=== PATIENT | female | born 1995 ===

== ENCOUNTER 2020-07-21 10:30 | Emergency (ER) | payer OTHER ==
[2020-07-21 11:01] VITALS: BP 124/86; PULSE 86
[2020-07-21] MEDS: Bacitracin Oint 1 GM U/D Packet TOP ONE (11:09)
[2020-07-21] MEDS: Lidocaine 1% 30 ML SDV INJECT ONE (11:09)
[2020-07-21] MEDS: Diphtheria,Pertussis(Acell),Tetanus Vaccine 0.5 ML Syringe IM ONE (11:10)
--- NOTE | 2020-07-21 11:36 | EDM.PDOC ---
Scribed by Carmita Chi 07/21/20 1104 for Ash López MD ED HPI GENERAL MEDICAL PROBLEM - General Chief Complaint: Laceration Stated Complaint: HAND LECERATION Time Seen by Provider: 07/21/20 10:56 Source of Information: Reports: Patient, RN, RN Notes Reviewed History Limitations: Reports: No Limitations - History of Present Illness INITIAL COMMENTS - FREE TEXT/NARRATIVE: Patient presents to ED by POV stating that she cut her left hand on a knife that was in her pocket. Tetanus is not up to date. She denies any other injury. Onset: Today Duration: Constant Location: Reports: Upper Extremity, Left Quality: Reports: Ache Severity: Mild Improves with: Reports: None Worsens with: Reports: None Associated Symptoms: Reports: No Other Symptoms Left Hand Pain Score (Numeric/FACES): 6 - Related Data Allergies Allergy/AdvReac Type Severity Reaction Status Date / Time ibuprofen Allergy Hives Verified 07/21/20 11:01 Home Meds: Home Meds . [No Known Home Meds] 07/21/20 [History] ED ROS GENERAL - Review of Systems Review Of Systems: Comprehensive ROS is negative, except as noted in HPI. ED EXAM, SKIN/RASH Exam: See Below Exam Limited By: No Limitations General Appearance: Alert, WD/WN, No Apparent Distress Head: Atraumatic, Normocephalic Neck: Normal Inspection Respiratory/Chest: No Respiratory Distress Cardiovascular: Normal Peripheral Pulses Extremities: Normal Range of Motion, Normal Capillary Refill, Other (Dorsal left hand has a 4.5cm linear laceration to depth of subcutaneous tissue, just lateral to the 2nd MC, no active bleeding, no FB, no tendon injury.) Neurological: Alert, Oriented, Normal Cognition, No Motor/Sensory Deficits ED SKIN PROCEDURES - Laceration/Wound Repair Left Dorsal Hand Appearance: Subcutaneous, Linear Distal NVT: Neuro & Vascular Intact, No Tendon Injury Anesthetic Type: Local Local Anesthesia - Lidocaine (Xylocaine): 1% Plain Local Anesthetic Volume: Other (10cc) Skin Prep: Chlorhexidine (Hibiciens), Saline, Sterile Drape Saline Irrigation (cc's): 1,000 Exploration/Debridement/Repair: Wound Explored, In a Bloodless Field, Explored to Base, Minimal Debridement, Moderately Undermined Closed with: Sutures Lac/Wound length In cm: 4.5 Suture Size: 4-0 # of Sutures: 7 Suture Type: Interrupted Sterile Dressing Applied: Nurse Tetanus Status Addressed: Yes Complications: No Course - Vital Signs Last Recorded V/S: Last Vital Signs Temp 98.7 F 07/21/20 10:54 Pulse 86 07/21/20 10:54 Resp 16 07/21/20 10:54 BP 124/86 07/21/20 10:54 Pulse Ox 100 07/21/20 10:54 - Orders/Labs/Meds Orders: Active Orders 24 hr Category Date Time Status Vaccines to be Administered [RC] PER UNIT ROUTINE Care 07/21/20 10:56 Active Meds: Medications Discontinued Medications Generic Name Dose Route Start Last Admin Trade Name Freq PRN Reason Stop Dose Admin Bacitracin 1 dose 07/21/20 10:56 07/21/20 11:09 Bacitracin Oint 1 Gm TOP 07/21/20 10:57 1 dose ONETIME ONE Administration Diphtheria/Tetanus/Acell Pertussis 0.5 ml 07/21/20 10:56 07/21/20 11:10 Boostrix IM 07/21/20 10:57 0.5 ml .ONCE ONE Administration Lidocaine HCl 30 ml 07/21/20 10:56 07/21/20 11:09 Xylocaine-Mpf 1% INJECT 07/21/20 10:57 30 ml ONETIME ONE Administration Departure - Departure Time of Disposition: 11:35 Disposition: Home, Self-Care 01 Condition: Good Clinical Impression: Laceration of left hand Qualifiers: Encounter type: initial encounter Foreign body presence: without foreign body Qualified Code(s): S61.412A - Laceration without foreign body of left hand, initial encounter - Discharge Information *PRESCRIPTION DRUG MONITORING PROGRAM REVIEWED*: Not Applicable *COPY OF PRESCRIPTION DRUG MONITORING REPORT IN PATIENT DIANA: Not Applicable Instructions: Laceration Care, Adult, [id number] Forms: ED Department Discharge Additional Instructions: Follow up in clinic in 7 to 10 days for suture removal. Return to ER if any signs of wound infection develop. Sepsis Event Note (ED) - Focused Exam Vital Signs: Vital Signs Temp Pulse Resp BP Pulse Ox 07/21/20 10:54 98.7 F 86 16 124/86 100 - My Orders Last 24 Hours: My Active Orders 07/21/20 10:56 Vaccines to be Administered [RC] PER UNIT ROUTINE - Assessment/Plan Last 24 Hours: My Active Orders 07/21/20 10:56 Vaccines to be Administered [RC] PER UNIT ROUTINE I have read and agree with the documentation that has been completed regarding this visit. By signing this record, I attest that the documentation was completed in my physical presence and is an accurate record of the encounter.
== END 2020-07-21 11:56 | disposition home or self-care (01) ==
LOC: DL.ED 10:30
DX: S61.412A Laceration without foreign body of left hand, initial encounter (principal); W26.0XXA Contact with knife, initial encounter
CPT/HCPCS: 12002; 90471; 90715; 99282-25; 99283; J2001

== ENCOUNTER 2021-11-20 01:31 | Emergency (ER) | payer OTHER ==
[2021-11-20] MEDS ORDERED: Iopamidol 612 MG/ML 100 ML Bottle IVPUSH ONE (02:14)
[2021-11-20] MEDS ORDERED: fentaNYL 100 MCG/2 ML SDV IVPUSH ONE (02:18)
[2021-11-20 03:34] LABS: ANION GAP 10.2 mEq/L (7-13); CHLORIDE,CL 102 mmol/L (98-107); SODIUM,NA 133 mmol/L (136-145)
[2021-11-20] MEDS ORDERED: Sodium Chloride 0.9% 250 ML IV ONE (04:50)
== END 2021-11-20 05:50 | disposition home or self-care (01) ==
LOC: DL.ED 01:31
DX: R10.31 Right lower quadrant pain (principal); R19.07 Generalized intra-abdominal and pelvic swelling, mass and lump; F15.10 Other stimulant abuse, uncomplicated; F17.210 Nicotine dependence, cigarettes, uncomplicated; Z90.49 Acquired absence of other specified parts of digestive tract; Z88.6 Allergy status to analgesic agent
CPT/HCPCS: 36415; 74177; 80053; 80307; 83605; 84703; 85025; 87040; 96374; 99283; 99285-25; J3010; Q9967